=== PATIENT | male | born 1970 | race Caucasian/White ===

== ENCOUNTER 2021-11-28 22:29 | Emergency (ER) | payer MEDICARE, MEDICAID, SELFPAY ==
[2021-11-28 22:33] VITALS: BP 100/58; PULSE 72; RESP 17; TEMP 37; O2SAT 94; BMI 15.5
--- NOTE | 2021-11-28 22:33 | XRR_ITS ---
PROCEDURE INFORMATION: Exam: XR Chest Exam date and time: 11/28/2021 10:40 PM Age: 50 years old Clinical indication: Shortness of breath; Prior surgery; Surgery date: 6+ months; Surgery type: Lt upper lobe of lung; Patient HX: SOB chest tightness TECHNIQUE: Imaging protocol: Radiologic exam of the chest. Views: 1 view. COMPARISON: No relevant prior studies available. FINDINGS: Lungs: Hyperaerated lungs consistent with moderate COPD . Pleural spaces: Unremarkable. No pleural effusion. No pneumothorax. Heart/Mediastinum: Unremarkable. No cardiomegaly. Bones/joints: Unremarkable. XR/XR chest 1V portable [id number] IMPRESSION: Hyperaerated lungs consistent with moderate COPD .
--- NOTE | 2021-11-28 22:33 | ECG_ITS ---
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 Measurements Intervals [place] Rate: 72 P: 85 MT: 160 QRS: 87 QRSD: 87 T: 86 QT: 376 QTc: 414 Interpretive Statements SINUS RHYTHM WITH OCCASIONAL ECTOPIC PREMATURE COMPLEXES POSSIBLE RIGHT ATRIAL ENLARGEMENT [0.25mV P-WAVE] POSSIBLE LEFT ATRIAL ENLARGEMENT [-0.1mV P-WAVE IN V1/V2] SEPTAL MYOCARDIAL INFARCTION , OF INDETERMINATE AGE [40+ ms Q WAVE IN V1/V2] INTERPRETATION BASED ON A DEFAULT AGE OF 40 YEARS No previous ECG available for comparison Electronically Signed On 11-29-2021 20:48:01 CDT by Bird Eduardo M.D. [id number]
[2021-11-28 22:47] LABS: Basophils # 0.1 10^3/uL (0.0-0.1); Basophils % 0.7 %; Eosinophils # 0.2 10^3/uL (0.0-0.8); Eosinophils % 1.7 %; Hematocrit 45.5 % (42.0-52.0); Hemoglobin 15.2 g/dL (11.7-16.6); Lymphocytes # 4.9 10^3/uL (0.8-4.8); Lymphocytes % 36.6 %; Mean Corpuscular HGB Conc 33.4 g/dL (30.0-36.0); Mean Corpuscular Hemoglobin 31.5 pg (28.0-34.0); Mean Corpuscular Volume 94.2 fl (80-94); Mean Platelet Volume 11.3 fL (7.4-10.4); Monocytes # 1.2 10^3/uL (0.2-0.9); Monocytes % 8.7 %; Neutrophils % 51.9 %; Nucleated Red Blood Cells % 0 %; Platelet Count 265 10^3/cmm (130-400); Red Blood Count 4.83 10^6/uL (4.1-5.3); Red Cell Distribution Width 12.2 % (12.1-15.1); White Blood Count 13.5 10^3/uL (4.0-10.0)
[2021-11-28] MEDS: sodium chloride 0.9% 1,000 ML 999 ML IV (22:48)
[2021-11-28 23:15] LABS: Alanine Aminotransferase 11 U/L (0-41); Albumin Level 4.4 g/dL (3.5-5.2); Alkaline Phosphatase 77 IU/L (40-130); Anion Gap 18.6 (5-19); Aspartate Amino Transferase 16 U/L (0-40); Blood Urea Nitrogen 23 mg/dL (6-20); Calcium 8.7 mg/dL (8.5-10.5); Carbon Dioxide 23 mmol/L (22-29); Chloride 99 mmol/L (98-107); Globulin 2.7 g/dL (1.3-4.6); Glomerular Filtration Rate 78.8 mL/min (90-130); Glucose 93 mg/dL (65-115); Lipase 16 U/L (13-60); Osmolality Calculated 287 mOsm/kg (285-295); Potassium 3.6 mmol/L (3.5-5.1); Sodium 137 mmol/L (136-145); Total Bilirubin 0.3 mg/dL (0.15-1.2); Total Protein 7.1 g/dL (6.6-8.7)
[2021-11-28 23:16] LABS: Troponin(5th) Baseline 12 ng/L (0-15)
--- NOTE | 2021-11-28 23:20 | W.ED.GENADLT ---
HPI - General Adult General: Chief complaint: General Medical Stated complaint: NOT FEELING WELL Time Seen by Provider: 11/28/21 22:30 Source: patient and EMS Mode of arrival: EMS Limitations: no limitations History of Present Illness: 50-year-old male states that over the last 2 to 3 days he has been having some generalized malaise and feeling like he is dehydrated. He states he took his pulse at home and it felt increased. He states that he had had lab drawn his PCP and was told he had electrolyte abnormalities but is not sure what they were. He states that today he is just has had some nausea felt like he was going to vomiting and is felt extremely fatigued he denies any worsening improving factors he is afebrile here vitals here are normal. Associated symptoms: Reports malaise; Deny chest pain, dyspnea, headache(s), nausea, rash or vomiting Review of Systems Const: Reports: fatigue and malaise Eyes: Denies: blurry vision or eye discomfort ENMT: Denies: throat pain or dental pain Card: Denies: chest pain Resp: Denies: dyspnea GI: Denies: abdominal pain, nausea, vomiting or diarrhea : Denies: dysuria Musc: Denies: neck pain or back pain Skin/Breast: Denies: rash Neuro: Denies: headache(s) Psych: Denies: depression Yogesh/Lymph: Denies: easy bruising All/Imm: Denies: urticaria PFSH ED PFSH: Surgical History (Updated 11/28/21 @ 23:22 by Fer Pandya MD) No pertinent past surgical history Social History (Updated 11/28/21 @ 23:22 by Fer Pandya MD) Substance/Drug Use: never Physical Exam Const: COMMON NORMALS: no acute distress, patient oriented x3 and healthy appearing HENMT: COMMON NORMALS: normocephalic and atraumatic HEAD & SCALP: normocephalic and atraumatic Eye: COMMON NORMALS: Equal, round and reactive pupils present and EOMs intact bilaterally PUPIL: Yes Equal, round and reactive pupils present Neck/C-Spine: COMMON NORMALS: full ROM and supple Chest: COMMONS NORMALS: normal inspection of the chest and normal palpation of entire chest wall Resp: COMMON NORMALS: normal respiratory effort, No retractions, No use of accessory muscles and clear to auscultation bilaterally AUSCULTATION: clear to auscultation bilaterally Cardio: COMMON NORMALS: regular rate, regular rhythm and No murmurs present (Cardio) RATE: regular rate RHYTHM: regular rhythm GI: COMMON NORMALS: Normal to inspection, nondistended, normoactive bowel sounds present, Soft to palpation, non-tender and no masses PALPATION: Yes Soft to palpation Extremity: COMMON NORMALS: normal to inspection and full ROM Neuro: COMMON NORMALS: patient oriented x3, moves all extremities and no focal motor deficits Psych: COMMON NORMALS: mental status grossly normal, Normal thought process present and cooperative THOUGHT PROCESS: Normal thought process present Skin: COMMON NORMALS: no rashes or lesions noted and no wounds GENERAL SKIN EXAM: no rashes or lesions noted Course Vital Signs: Vital signs: Vital Signs Temperature 98.6 F 11/28/21 22:33 Pulse Rate 58 L 11/29/21 01:17 Respiratory Rate 16 11/29/21 01:17 Blood Pressure 100/52 11/29/21 01:17 Pulse Oximetry 97 11/29/21 01:17 [facility] - General Adult Medical Decision Making Patient presents here with generalized weakness fatigue along with some nausea patient's blood work here is all normal did have some slight hematuria CT scan shows no acute findings. COVID is negative feels improved here after IV fluids he is stable for discharge we will prescribe him Zofran he is to follow-up with PCP and return if worsening he understands agrees plan. Lab Data : 11/28/21 22:42 11/28/21 22:42 Radiology Impressions Chest X-Ray 11/28/21 22:33 IMPRESSION: Hyperaerated lungs consistent with moderate COPD . Abdomen/Pelvis CT 11/29/21 00:27 IMPRESSION: 1. There is no evidence for ureteral obstruction. 2. Normal appendix 3. There are no acute abdominal findings. Laboratory Results WBC 13.5 10^3/uL (4.0-10.0) H 11/28/21 22:42 RBC 4.83 10^6/uL (4.1-5.3) 11/28/21 22:42 Hgb 15.2 g/dL (11.7-16.6) 11/28/21 22:42 Hct 45.5 % (42.0-52.0) 11/28/21 22:42 MCV 94.2 fl (80-94) H 11/28/21 22:42 MCH 31.5 pg (28.0-34.0) 11/28/21 22:42 MCHC 33.4 g/dL (30.0-36.0) 11/28/21 22:42 RDW 12.2 % (12.1-15.1) 11/28/21 22:42 Plt Count 265 10^3/cmm (130-400) 11/28/21 22:42 MPV 11.3 fL (7.4-10.4) H 11/28/21 22:42 Neut % (Auto) 51.9 % 11/28/21 22:42 Lymph % (Auto) 36.6 % 11/28/21 22:42 [place] % (Auto) 8.7 % 11/28/21 22:42 Eos % (Auto) 1.7 % 11/28/21 22:42 Baso % (Auto) 0.7 % 11/28/21 22:42 Neut # (Auto) 7.00 10^3/uL (1.8-7.7) 11/28/21 22:42 Lymph # (Auto) 4.9 10^3/uL (0.8-4.8) H 11/28/21 22:42 [place] # (Auto) 1.2 10^3/uL (0.2-0.9) H 11/28/21 22:42 Eos # (Auto) 0.2 10^3/uL (0.0-0.8) 11/28/21 22:42 Baso # (Auto) 0.1 10^3/uL (0.0-0.1) 11/28/21 22:42 Nucleated RBC % (auto) 0 % 11/28/21 22:42 Nucleated RBCs # 0.0 /100WBC 11/28/21 22:42 Sodium 137 mmol/L (136-145) 11/28/21 22:42 Potassium 3.6 mmol/L (3.5-5.1) 11/28/21 22:42 Chloride 99 mmol/L (98-107) 11/28/21 22:42 Carbon Dioxide 23 mmol/L (22-29) 11/28/21 22:42 Anion Gap 18.6 (5-19) 11/28/21 22:42 BUN 23 mg/dL (6-20) H 11/28/21 22:42 Creatinine 1.0 mg/dL (0.7-1.2) 11/28/21 22:42 GFR Calculation 78.8 mL/min (90-130) L 11/28/21 22:42 Glucose 93 mg/dL (65-115) 11/28/21 22:42 Calculated Osmolality 287 mOsm/kg (285-295) 11/28/21 22:42 Calcium 8.7 mg/dL (8.5-10.5) 11/28/21 22:42 Total Bilirubin 0.3 mg/dL (0.15-1.2) 11/28/21 22:42 AST 16 U/L (0-40) 11/28/21 22:42 ALT 11 U/L (0-41) 11/28/21 22:42 Alkaline Phosphatase 77 IU/L (40-130) 11/28/21 22:42 Troponin T Baseline 12 ng/L (0-15) 11/28/21 22:42 Troponin T 120 Minute 14.80 ng/L (0-15) 11/29/21 00:30 Delta Troponin T 2.80 ABS# (0-10) 11/29/21 00:30 Total Protein 7.1 g/dL (6.6-8.7) 11/28/21 22:42 Albumin 4.4 g/dL (3.5-5.2) 11/28/21 22:42 Globulin 2.7 g/dL (1.3-4.6) 11/28/21 22:42 Lipase 16 U/L (13-60) 11/28/21 22:42 Urine Color Yellow (Yellow) 11/29/21 00:21 Urine Appearance Clear (CLEAR) 11/29/21 00:21 Urine pH 5 (5-7) 11/29/21 00:21 Ur Specific [place] 1.025 (1.005-1.030) 11/29/21 00:21 Urine Protein Neg (Negative) 11/29/21 00: Urine Glucose (UA) Norm (Normal) 11/29/21 00:21 Urine Ketones Negative (Negative) 11/29/21 00:21 Urine Blood 3+ (Negative) H 11/29/21 00: Urine Nitrate Negative (Negative) 11/29/21 00:21 Urine Bilirubin Neg (Negative) 11/29/21 00:21 Urine Urobilinogen Neg mg/dL (Negative) 11/29/21 00:21 Ur Leukocyte Esterase Negative (Negative) 11/29/21 00:21 Urine RBC 15-25 /hpf (0-2) H 11/29/21 00:21 Urine WBC 0-4 /hpf (0-5) H 11/29/21 00:21 Ur Squamous Epith Cells 0-4 /hpf (0-5) H 11/29/21 00:21 Amorphous Sediment Not Reportable 11/29/21 00:21 Urine Bacteria None /hpf (NONE) 11/29/21 00:21 SARS-CoV-2 Ag (Rapid) Negative (Negative) 11/28/21 23:37 EKG Data EKG 1: I personally reviewed and interpreted this EKG as follows: EKG interpretation date: 11/28/21 EKG interpretation time: 22:56 Interpretation: nsr hr [address] or t wave abnormalities qrs 87 qtc 401 Computer generated interpretation: Chest X-Ray 11/28/21 22:33 IMPRESSION: Hyperaerated lungs consistent with moderate COPD . Abdomen/Pelvis CT 11/29/21 00:27 IMPRESSION: 1. There is no evidence for ureteral obstruction. 2. Normal appendix 3. There are no acute abdominal findings. EKG 2: I personally reviewed and interpreted this EKG as follows: EKG interpretation date: 11/29/21 EKG interpretation time: 00:53 Interpretation: sinus april hr [address] or t wave abnormalities qrs 83 [id number] Computer generated interpretation: Chest X-Ray 11/28/21 22:33 IMPRESSION: Hyperaerated lungs consistent with moderate COPD . Abdomen/Pelvis CT 11/29/21 00:27 IMPRESSION: 1. There is no evidence for ureteral obstruction. 2. Normal appendix 3. There are no acute abdominal findings. Discharge Plan Discharge Patient Disposition: Home Clinical Impression: Weakness Prescriptions: New ondansetron 4 mg tablet,disintegrating 4 mg PO Q6H PRN (Reason: nausea and vomiting) Qty: 14 0RF Discharge Orders: Discharge ED (Routine); Ordered 11/29/21 Ordered By: Fer Pandya Discharge Diet: Advance as tolerated Discharge Activity: Resume usual activity Patient Instructions: Weakness (ED) Coding Level of Care Code ED Sack Lifter for Chg Fwd Exam Comprehensive
[2021-11-28 23:38] VITALS: BP 90/65; PULSE 60; RESP 18; O2SAT 98
[2021-11-29 00:05] LABS: SARS Covid-2 Antigen Negative (Negative)
[2021-11-29 00:26] LABS: Add Urine Microscopic? YES; Bilirubin Urine Neg (Negative); Blood Urine 3+ (Negative); Glucose Urine UA Norm (Normal); Ketones Urine Negative (Negative); Leukocyte Esterase Urine Negative (Negative); Nitrate Urine Negative (Negative); Protein Urine Neg (Negative); Specific Gravity, Urine 1.025 (1.005-1.030); Urine Appearance Clear (CLEAR); Urine Color Yellow (Yellow); Urobilinogen Urine Neg (Negative); pH Urine 5 (5-7)
[2021-11-29] MEDS: sodium chloride 0.9% 500 ML 999 ML IV (00:27)
--- NOTE | 2021-11-29 00:27 | CTR_ITS ---
PROCEDURE INFORMATION: Exam: CT Abdomen And Pelvis Without Contrast Exam date and time: 11/29/2021 12:36 AM Age: 50 years old Clinical indication: Abdominal pain; Localized; Right lower quadrant (rlq); Patient HX: Rlq pain x 1 month, worst in last week; Additional info: Hematuria TECHNIQUE: Imaging protocol: Computed tomography of the abdomen and pelvis without contrast. Radiation optimization: All CT scans at this facility use at least one of these dose optimization techniques: automated exposure control; mA and/or kV adjustment per patient size (includes targeted exams where dose is matched to clinical indication); or iterative reconstruction. COMPARISON: CR (CHEST, ) 11/28/2021 10:40 PM RADIATION DOSE METRICS: Total DLP (mGy-cm): 706.12 FINDINGS: Liver: Normal. No mass. Gallbladder and bile ducts: Normal. No calcified stones. No ductal dilation. Pancreas: Normal. No ductal dilation. Spleen: Normal. No splenomegaly. Adrenal glands: Normal. No mass. Kidneys and ureters: Normal. No hydronephrosis. Stomach and bowel: Unremarkable. No obstruction. No mucosal thickening. Appendix: The appendix is visualized and is normal in configuration. Intraperitoneal space: Unremarkable. No free air. No significant fluid collection. Vasculature: Calcifications are present within the abdominal aorta and iliac arteries. Lymph nodes: Unremarkable. No enlarged lymph nodes. Urinary bladder: Unremarkable as visualized. Reproductive: Unremarkable as visualized. Bones/joints: A severe loss of disc height and vacuum disc phenomenon is seen at L4-S1 compatible with severe degenerative disc disease. Soft tissues: Unremarkable. CT/CT kidney stone [id number] IMPRESSION: 1. There is no evidence for ureteral obstruction. 2. Normal appendix 3. There are no acute abdominal findings.
[2021-11-29 00:31] LABS: RBC Urine 15-25 /hpf (0-2)
[2021-11-29 00:32] LABS: Add Urine Culture? Yes; Squamous Epithelial Cell Urine 0-4 /hpf (0-5); WBC Urine 0-4 /hpf (0-5)
--- NOTE | 2021-11-29 00:33 | ECG_ITS ---
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 Measurements Intervals [place] Rate: 53 P: 86 [place]: 175 QRS: 88 QRSD: 83 T: 87 QT: 429 QTc: 405 Interpretive Statements SINUS BRADYCARDIA POSSIBLE LEFT ATRIAL ENLARGEMENT [-0.1mV P-WAVE IN V1/V2] SEPTAL MYOCARDIAL INFARCTION , OF INDETERMINATE AGE [40+ ms Q WAVE IN V1/V2] Compared to ECG 11/28/2021 22:56:35 Sinus rhythm no longer present Myocardial infarct finding still present Electronically Signed On 11-29-2021 21:01:43 CDT by Bird Edurado M.D. [email or web address]
[2021-11-29 00:55] VITALS: BP 95/56; PULSE 60; RESP 18; O2SAT 98
[2021-11-29 01:17] VITALS: BP 100/52; PULSE 58; RESP 16; O2SAT 97
[2021-11-29 01:29] VITALS: BP 93/60; PULSE 68; RESP 18; O2SAT 99
== END 2021-11-29 01:36 | disposition home or self-care (01) ==
PROVIDERS: Emergency Provider Emergency Medicine
DX: R53.1 Weakness (principal); Z20.822 Contact with and (suspected) exposure to COVID-19
CPT/HCPCS: 71045; 74176; 80053; 81001; 83690; 84484; 85025; 87086; 87426; 93005; 99285; J7030; J7040

== ENCOUNTER → 2022-05-23 12:22 | Outpatient (BNVA) | payer MEDICARE, MEDICAID, SELFPAY | PROVIDERS: PCP Physician Assistant; Visit Provider Internal Medicine Cardiovascular Disease | DX: R07.9 Chest pain, unspecified (principal); R00.2 Palpitations; R06.02 Shortness of breath; K21.9 Gastro-esophageal reflux disease without esophagitis; F17.200 Nicotine dependence, unspecified, uncomplicated; Z85.118 Personal history of other malignant neoplasm of bronchus and lung | CPT/HCPCS: 93005; 93225; 99204; Q3014 ==